=== PATIENT | female | born 1985 | race Caucasian/White ===

== ENCOUNTER 2024-11-14 12:30 | Emergency (ER) | payer OTHER, SELFPAY ==
--- NOTE | ~2024-11-14 | XR_ITS ---
[id number] Ordering provider: Heath Cherry APRN History: . rib chest wall pain . Comparison: None. FINDINGS: BONES: No acute right rib fracture or fracture of the visualized osseous structures. LUNGS: No effusions or infiltrates. No pneumothorax. SOFT TISSUES: Normal. IMPRESSION: No right rib fracture. Reviewed, dictated and finalized at location A. IMPRESSION: No right rib fracture.
--- NOTE | 2024-11-14 12:34 | ED.CHESTPAIN ---
HPI - Chest Pain General Chief Complaint: Unspecified Stated Complaint: Chest injury Time Seen by Provider: 11/14/24 12:34 Source: patient Mode of arrival: ambulatory Limitations: no limitations History of Present Illness HPI narrative: Matilda is a 39-year-old female patient presenting to the clinic today with complaints a chest wall injury. She reports she ran into the oven door while she was at work injuring her chest on . Is having pain over the right upper chest wall with coughing and taking deep breaths. Has some old bruising over the right upper chest wall and over the anterior shoulder. Denies any shoulder pain. Related Data Home Medications ?Medication ?Instructions ?Recorded ?Confirmed ?Last Taken ?Type lisinopril 20 mg tablet mg 11/14/24 Unknown History Allergies Allergy/AdvReac Type Severity Reaction Status Date / Time bee venom protein (honey bee) Allergy Unknown Unknown Verified 11/14/24 12:49 Review of Systems Review of Systems: Pertinent positives per HPI. Patient denies any fever, chills, rash, headache, visual changes, dizziness, cough, runny nose, sore throat, shortness of breath, chest pain, palpitations, nausea, vomiting, diarrhea, constipation, abdominal pain, or any urinary issues. PMFSH Comments At the time of my signature, I reviewed and agree with the nursing past medical, surgical, social, and family history. There is no relevant family history pertinent to the patient complaint. Exam Narrative: General: Well-developed, well nourished, in no apparent distress Head: Normocephalic, atraumatic. Chest wall: Even rise and fall of the chest wall, old bruising to the right upper chest wall noted, no obvious step-off deformity of the ribs Cardio: Regular rate and rhythm, s1 and s2 normal, no murmur appreciated. Resp: Clear to auscultation bilaterally, no rhonchi, rales, wheezing or rubs. Extremities: No deformity, no edema, no cyanosis, capillary refill less than 2 seconds, peripheral pulses palpable and strong. Integumentary: [place], warm, and dry, intact without lesion, no rashes. Course Course Emergency Course: Portions of this record may have been created with voice recognition software. Level of Care: Express Care Visit Vital Signs Vital signs: Vital Signs Temperature 36.6 C 11/14/24 12:44 Pulse Rate 103 H 11/14/24 12:44 Respiratory Rate 20 11/14/24 12:44 Blood Pressure 182/131 H 11/14/24 12:44 Pulse Oximetry 100 11/14/24 12:44 Oxygen Delivery Room Air 11/14/24 12:44 Temperature 36.6 C 11/14/24 12:44 Pulse Rate 103 H 11/14/24 12:44 Respiratory Rate 20 11/14/24 12:44 Blood Pressure 182/131 H 11/14/24 12:44 Pulse Oximetry 100 11/14/24 12:44 Oxygen Delivery Room Air 11/14/24 12:44 Vital signs reviewed MDM - Chest Pain MDM Narrative Medical decision making narrative: At the time of visit patient is resting comfortably on the exam table. Patient appears to be nontoxic. Diagnostics: X-ray of the right ribs with PA chest was performed and was negative for any acute rib fracture, pneumo, or pneumonia. Plan: I suspect patient has right chest wall pain/contusion. Supportive measures were discussed with the patient and they voiced understanding discharge instructions and agrees to treatment plan. Return precautions reviewed Differential Diagnosis Differential diagnosis: Likely fracture of rib, pneumothorax, atypical chest pain, costochondritis and chest pain Imaging Data Radiologist's impression: ITS Impressions Ribs w/Chest X-Ray 11/14/24 13:22 IMPRESSION: No right rib fracture. Discharge Plan Discharge Clinical Impression: Chest wall contusion Qualifiers: Encounter type: initial encounter Laterality: right Qualified Code(s): S20.211A - Contusion of right front wall of thorax, initial encounter Patient Disposition: Home Condition: Stable Instructions: Antibiotic Form, Chest Wall Pain (ED), Chest Contusion (ED) Additional Instructions: X-rays negative for any sign of fracture or malalignment of the right ribs-no sign of pneumothorax or pneumonia. Go home and take your blood pressure medication Rest and ice-apply ice to the affected area 20 minutes at a time 20 minutes on/20 minutes off for the next 24 hours Tylenol/motrin for pain as discussed. Follow up with your PCP if symptoms persist more than 1 week. Patient Language: East Timorese Prescriptions: No Action lisinopril 20 mg tablet Follow-up/Referrals: UNKNOWN,DOCTOR [Primary Care Provider] - Time of Disposition: 13:28 Quality NIHSS Nursing Documentation ED NIHSS nursing documentation: reviewed/agree
--- OUTSIDE RECORDS SUMMARY | 2024-11-14 12:41 | XMS_ITS | Clinical Summary ---
Author Organization [facility] Address [address] [place] [address] Care Team Providers Care Collaborative Physician Name Role Phone Rossy Grijalva NP Primary Care Provider Allergies Active Allergy Reactions Criticality Noted Date Comments Aspirin Other (See comments) Low Cannot take due to bleeding disorder Nsaids (Non-Steroidal Anti-Inflammatory Drug) Other (See comments) Low 11/18/2022 Cannot take due to bleeding disorder Medications lisinopriL (PRINIVIL,ZESTRI L) 40 mg tabletIndication s:Hypertension, essential Take 1 tablet (40 mg total) by mouth daily 90 tablet 1 10/04/2023 Active Active Problems Problem Noted Date Diagnosed Date Hypertension, essential 12/03/2022 Assessment & Plan (12/03/2023 7:09 AM CDT): -chronic, stable -continue on lisinopril 40 mg daily -recommend healthy, low-salt diet Assessment & Plan (08/25/2023 9:55 AM BIRTH ATTENDANT): -chronic, not at/near goal -increase to lisinopril 20 mg 2 tablets daily -advised to check blood pressure daily and keep a log and to send me the log in about 1 week -recommend healthy, low-salt diet Assessment & Plan (06/21/2023 1:14 PM BIRTH ATTENDANT): -chronic, not at/near goal -start back on lisinopril 20 mg daily -recommend healthy, low-salt diet -follow up in 4 weeks or sooner as needed Assessment & Plan (01/18/2023 1:56 PM CDT): -chronic, not at/near goal -increase to lisinopril 5 mg 2 tablets daily -advised patient check blood pressure daily and send me the readings in 1 week -recommend healthy, low-salt diet and cessation of alcohol and smoking Assessment & Plan (01/04/2023 2:23 PM CDT): -chronic, not at/near goal -start on lisinopril 5 mg daily. -advised patient to let me know if she experiences dizziness or lightheadedness -follow up in 2 weeks Assessment & Plan (12/03/2022 2:14 PM CDT): HPI: Condition is stable stable in office today blood pressure less than 140/90 A&P: Patient reports she used to take a low dose medication for blood pressure, but she can not remember the name of it. Patient states she would like to start back on this low-dose medication if possible. Patient states her blood pressure tends to be higher when she was drinking, which she has been recently cutting back on. Advised patient to let the office know when she locates the name of the medication and it can be reordered if appropriate. -follow up in 1 month Tobacco use 12/03/2022 Assessment & Plan (12/03/2023 7:09 AM CDT): Patient aware of risks of tobacco use up to and including Patient does not have interest in quitting at this time Recommend smoking cessation Assessment & Plan (08/25/2023 7:57 AM BIRTH ATTENDANT): Patient aware of risks of tobacco use up to and including Patient does not have interest in quitting at this time Recommend smoking cessation Assessment & Plan (01/18/2023 7:18 AM CDT): Patient aware of risks of tobacco use up to and including Patient does not have interest in quitting at this time Recommend smoking cessation Assessment & Plan (01/04/2023 7:13 AM CDT): Patient aware of risks of tobacco use up to and including Patient does not have interest in quitting at this time Recommend smoking cessation Assessment & Plan (12/03/2022 2:10 PM CDT): Patient aware of risks of tobacco use up to and including Patient does not have interest in quitting at this time Recommend smoking cessation Marijuana use 12/03/2022 Assessment & Plan (12/03/2023 7:09 AM CDT): Recommend cessation of smoking marijuana. Assessment & Plan (08/25/2023 7:57 AM BIRTH ATTENDANT): Recommend cessation of smoking marijuana. Assessment & Plan (01/18/2023 1:57 PM CDT): Recommend cessation of smoking marijuana. Assessment & Plan (01/04/2023 7:13 AM CDT): Recommend stopping smoking marijuana Assessment & Plan (12/03/2022 2:10 PM CDT): Recommend stopping smoking marijuana Alcohol abuse 12/03/2022 Assessment & Plan (08/25/2023 9:55 AM BIRTH ATTENDANT): -recommend cessation of drinking alcohol Assessment & Plan (01/18/2023 7:17 AM CDT): -recommend cessation of drinking alcohol -patient reports she used to drink about 10 beers/shots of spiced rum daily -patient reports her drinking has greatly decreased since she broke her foot Assessment & Plan (01/04/2023 7:13 AM CDT): -recommend cessation of drinking alcohol -patient reports she used to drink about 10 beers/shots of spiced rum daily -patient reports her drinking has greatly decreased since she broke her foot Assessment & Plan (12/03/2022 2:12 PM CDT): -recommend cessation of drinking alcohol -patient reports she used to drink about 10 beers/shots of spiced rum daily -patient reports her drinking has greatly decreased since she broke her foot History of blood clotting disorder 12/03/2022 Assessment & Plan (01/04/2023 2:23 PM CDT): -chronic, unknown, no data to review at this time to make an evaluation -advised patient to complete previously ordered lab work Assessment & Plan (12/03/2022 2:16 PM CDT): -chronic, unknown if stable -patient is uncertain of the name of her blood clotting disorder -our office will reach out for records from [facility] and [place] to determine the type of blood clotting disorder and routine lab work -Once we receive these results, lab work will be ordered. Resolved Problems Problem Noted Date Diagnosed Date Resolved Date Smoking 11/18/2023 11/18/2023 Closed fracture of metatarsa l bone of right foot 12/03/2022 08/25/2023 Assessment & Plan (01/04/2023 2:24 PM CDT): -improving -continue follow up with Dr. Nehal scott Assessment & Plan (12/03/2022 2:09 PM CDT): -not at goal- patient is waiting to have surgery scheduled -continue follow up with Dr. Nehal scott Closed fracture of phalanx o f lesser toe of right foot 12/03/2022 08/25/2023 Assessment & Plan (01/04/2023 2:24 PM CDT): -improving -continue follow up with Dr. Nehal scott Assessment & Plan (12/03/2022 2:09 PM CDT): -not at goal- patient is waiting to have surgery scheduled -continue follow up with Dr. Nehal scott Immunizations Immunization Administration Dates Next Due Influenza, Unspecified 08/25/2023(Deferr ed: Patient Refused - pt declined),07/05/2022(Deferred: Patient Refused),02/02/2022(Deferred: Patient Refused) Tdap 08/25/2023 Medical History Medical History Date Comments Hypertension Family History Medical History Relation Name Comments defects Brother Diabetes Father Drug abuse Father Stroke Maternal Grandfather Diabetes Maternal Grandmother Asthma Mother Drug abuse Mother Cancer Other Hyperlipidemia Paternal Grandfather Hypertension Paternal Grandfather Relation Name Status Comments Brother Father Maternal Grandfather Maternal Grandmother Mother Other Other Paternal Grandfather Social History Tobacco Use Types Packs/Day Years Used Date Smoking Tobacco: Every Day Cigarettes Tobacco Cessation:Ready to Q uit: Not Asked; Counseling Given: Not Answered Humiliation, Afraid, Rape, and Kick questionnair e Answer Date Recorded Within the last year, have y ou been afraid of your partner or ex-partner? No 11/18/2023 Within the last year, have y ou been humiliated or emotionally abused in other ways by your partner or ex-partner? No Within the last year, have y ou been kicked, hit, slapped, or otherwise physically hurt by your partner or ex-partner? No 11/18/2023 Within the last year, have y ou been raped or forced to have any kind of sexual activity by your partner or ex-partner? No 11/18/2023 AUDIT-C Answer Date Recorded Q1: How often do you have a drink containing alcohol? 4 or more times a week 08/25/2023 Q2: How many drinks containi ng alcohol do you have on a typical day when you are drinking? 10 or more Q3: How often do you have si x or more drinks on one occasion? Daily or almost daily 08/25/2023 PHQ-2 Answer Date Recorded PHQ-2 Total Score (If total score is 3 or more points, staff should administer the PHQ-9) 1 12/03/2023 Personal Safety Answer Date Recorded Getting School Help Needed Not on file 11/24 Comments No Sex and Gender Information Value Date Recorded Sex Assigned at Not on file Legal Sex Female 6:34 PM BIRTH ATTENDANT Gender Identity Female 11/19/2022 1:07 AM CDT Sexual Orientation Straight 11/19/2022 1: 07 AM CDT Obstetrics History Para Term AB IAB SAB Ectopic Multiple Livin g Live Births 1 1 Date Outcome GA Total Labor Labor/2nd/3rd Weight Sex Type Anes PTL Ankita A1 A5 Name Clin AB Last Filed Vital Signs Vital Sign Reading Time Taken Comments Blood Pressure 131/89 12/03/2023 10:51 AM CDT Pulse 95 12/03/2023 10:28 AM CDT Temperature 36.5 C (97.7 F) 12/03/2023 10:28 AM CDT Respiratory Rate 18 12/03/2023 10:28 AM CDT Oxygen Saturation 97% 12/03/2023 10:28 AM CDT Inhaled Oxygen Concentration - - Weight 62.1 kg (137 lb) 12/03/2023 10:28 AM CDT Height 162.6 cm (5' 4 ) 11/18/2023 9:02 AM CDT Body Mass Index 23.52 11/18/2023 9:02 AM CDT Plan of Treatment Health Maintenance Due Date Last Done Comments Hepatitis C Screening 1986 Hepatitis B Screening 01/27/2004 Pneumococcal vaccine <65 (1 of 2 - PCV) 2005 Covid-19 Vaccine ( - season) 2024 12/23/2020, 11/22/2020 Influenza Vaccine (#1) 2024 Cervical Cancer Screening 11/17/2024 11/18/2023 Regular Well Visit/Exam 18-64 11/17/2024 11/18/2023, 08/25/2023 Depression Screening 12/02/2024 12/03/2023, 11/18/2023, 08/25/2023, Additional history exists DTaP/Tdap/Td Vaccine (2 - Td or Tdap) 08/25/2033 08/25/2023 HPV Vaccines Aged Out No longer eligi ble based on patient's age to complete this topic Varicella Vaccines Discontinued Procedures Procedure Name Priority Date/Time Associated Diagnosis Comments PAP AND HPV, REFLEX TO HPV GENOTYPES Routine 11/18/2023 9:31 AM CDT Encounter for well woman exam with routine gynecological exam from Last 3 Months or Most Recently Relevant to Health Maintenance Results * (ABNORMAL) Pap and HPV, reflex to HPV Genotypes (11/18/2023 9:31 AM CDT) CLINICAL INFORMATION: [facility] Comment:None given LMP [facility] Comment:NONE GIVEN Previous Pap [facility] Comment:NONE GIVEN Prev. Bx [facility] Comment:NONE GIVEN SOURCE: [facility] Comment:Cervix, Endocervix Pap, specimen adequacy [facility] Comment: Satisfactory for evaluation. Endocervical/transformation zone component present. Age and/or menstrual status not provided Pap, general categorization (A) [facility] Comment:Cytology Results: Ep ithelial Cell Abnormality HPV interp (A) [facility] Comment: Atypical Squamous Cells of Undetermined Significance (ASC-US) COMMENTS [facility] Comment: This case could not be evaluated with computer assisted technology. The slide was manually screened according to routine procedures. Plate Glass Installer [facility] Comment: BES, CT(ASCP) CT screening location: [place] [address] [place] [address] Pathologist [facility] Comment: Mumtaz Walter Jr., M.D. Board Certified in Anatomic Pathology, Clinical Pathology and Cytopathology, Specializing in Urologic Pathology (electronic signature) Comment [facility] Comment: EXPLANATORY NOTE: The Pap is a screening test for cervical cancer. It is not a diagnostic test and is subject to false negative and false positive results. It is most reliable when a satisfactory sample, regularly obtained, is submitted with relevant clinical findings and history, and when the Pap result is evaluated along with historic and current clinical information. Human papillomavirus DNA, High Risk E6/E7 Not Detected NOT DETECTED [facility] [place] Comment: Not Detected High Risk HPV types (16,18,31,33,35,39,45,51,52, 56,58,59,66,68) were not detected. Other HPV types which cause anogenital lesions may be present. The significance of the other types of HPV in malignant processes has not been established. Methodology: Real Time PCR Thin prep 11/18/2023 9:31 AM CDT 11/19/2023 1:13 AM CDT us Taina Kat NP LAB CYTOLOGY ORDERABLES Fin al Result [facility] [address] [place] [address] [facility] [address] [place] [address] from Last 3 Months or Most Recently Relevant to Health Maintenance Insurance [facility] AETNA WARD HMO/POS AETNA HE[employer] HMO AET [employer] HMO/POS Care Teams Collaborative Physician Relationship Specialty Start Date End Date Rossy Grijalva NP [address] [place] [address] [place] [address] PCP - General Family Medicine 12/03/22
--- OUTSIDE RECORDS SUMMARY | 2024-11-14 12:41 | XMS_ITS | Referral Summary ---
Author Organization [facility] Address [address] [place] [address] Care Team Providers Care Bag Sealer Name Role Phone Rossy Grijalva NP Primary [...] diet Assessment & Plan (08/25/2023 9:55 AM TIMING INSPECTOR): -chronic, not at/near goal -increase to lisinopril 20 mg 2 tablets daily -advised to check blood pressure daily and keep a log and to send me the log in about 1 week -recommend healthy, low-salt diet Assessment & Plan (06/21/2023 1:14 PM TIMING INSPECTOR): -chronic, not at/near goal -start back on [...] cessation Assessment & Plan (08/25/2023 7:57 AM TIMING INSPECTOR): Patient aware of risks of tobacco use [...] marijuana. Assessment & Plan (08/25/2023 7:57 AM TIMING INSPECTOR): Recommend cessation of smoking marijuana. Assessment & Plan (01/18/2023 1:57 PM CDT): Recommend cessation of smoking marijuana. Assessment & Plan (01/04/2023 7:13 AM CDT): Recommend stopping smoking marijuana Assessment & Plan (12/03/2022 2:10 PM CDT): Recommend stopping smoking marijuana Alcohol abuse 12/03/2022 Assessment & Plan (08/25/2023 9:55 AM TIMING INSPECTOR): -recommend cessation of drinking alcohol Assessment & [...] office will reach out for records from [facility] and [place] to determine the type of blood clotting [...] declined),07/05/2022(Deferred: Patient Refused),02/02/2022(Deferred: Patient Refused) Tdap 08/25/2023 Social History Tobacco Use Types Packs/Day Years [...] on file Legal Sex Female 6:34 PM TIMING INSPECTOR Gender Identity Female 11/19/2022 1:07 AM CDT Sexual Orientation Straight 11/19/2022 1: 07 AM CDT Last Filed Vital Signs Vital Sign Reading [...] 11/18/2023 9:02 AM CDT Plan of Treatment Not on file Procedures Procedure Name Priority Date/Time Associated Diagnosis Comments PAP AND HPV, REFLEX TO HPV GENOTYPES Routine 11/18/2023 9:31 AM CDT Encounter for well woman exam with routine gynecological exam from Last 3 Months or Most Recently Relevant to Health Maintenance Results * (ABNORMAL) Pap and HPV, reflex to HPV Genotypes (11/18/2023 9:31 AM CDT) CLINICAL INFORMATION: [facility] [facility] Comment:None given LMP [facility] Comment:NONE GIVEN [facility] Comment:NONE GIVEN Prev. Bx [facility] Comment:NONE GIVEN SOURCE: [facility] Comment:Cervix, Endocervix Pap, specimen adequacy [facility] Comment: Satisfactory for evaluation. Endocervical/transformation zone component present. Age and/or menstrual status not provided Pap, general categorization (A) [facility] [facility] Comment:Cytology Results: Ep ithelial Cell Abnormality HPV interp (A) [facility] Comment: Atypical Squamous Cells of Undetermined Significance (ASC-US) COMMENTS [facility] Comment: This case could not be evaluated with computer assisted technology. The slide was manually screened according to routine procedures. Public Health Informatician [facility]ner [facility] Comment: BES, CT(ASCP) CT screening location: [place] [address] [place] [address] Pathologist [facility] Comment: Mumtaz Walter Jr., M.D. Board Certified in Anatomic Pathology, Clinical Pathology and Cytopathology, Specializing in Urologic Pathology (electronic signature) Comment [facility] Comment: EXPLANATORY NOTE: The Pap is a [...] High Risk E6/E7 Not Detected NOT DETECTED [facility] Comment: Not Detected High Risk HPV types (16,18,31,33,35,39,45,51,52, 56,58,59,66,68) were not detected. Other HPV types which cause anogenital lesions may be present. The significance of the other types of HPV in malignant processes has not been established. Methodology: Real Time PCR Thin prep 11/18/2023 9:31 AM CDT 11/19/2023 1:13 AM CDT Taina Kat NP LAB CYTOLOGY ORDERABLES Fin al Result Performing Organization Address [facility]/ZIP Co de Phone Number [facility] [address] [place] [address] [facility] [address] [place] [address] from Last 3 Months or Most Recently Relevant to Health Maintenance Insurance [place] [address] [address] HMO/POS AETNA [facility] HMO AETNA [place]OV[employer] HMO/POS Care Teams Bag Sealer Relationship Specialty Start Date End Date Rossy Grijalva NP [address] [place] [address] PCP - General Family Medicine 12/03/22
[2024-11-14 12:44] VITALS: BP 182/131; PULSE 103; RESP 20; TEMP 36.6; O2SAT 100
[2024-11-14 13:34] VITALS: BP 142/90
== END 2024-11-14 13:34 | disposition home or self-care (01) ==
PROVIDERS: Emergency Provider Nurse Practitioner Family
DX: S20.211A Contusion of right front wall of thorax, initial encounter (principal); W22.8XXA Striking against or struck by other objects, initial encounter; Y99.0 Civilian activity done for income or pay; I10 Essential (primary) hypertension
CPT/HCPCS: 71101; 99203; G0463